=== PATIENT | male | born 1980 | race Caucasian/White ===

== ENCOUNTER → 2021-01-30 | Outpatient (CLI) | payer OTHER | LOC: RAD 10:54 | DX: M25.571 Pain in right ankle and joints of right foot (principal) | CPT/HCPCS: 73610 ==

== ENCOUNTER → 2021-03-08 | Outpatient (CLI) | payer OTHER | LOC: RAD 11:55 | DX: M25.571 Pain in right ankle and joints of right foot (principal) | CPT/HCPCS: 73590 ==

== ENCOUNTER 2021-03-13 21:03 | Emergency (ER) | payer OTHER | END 2021-03-14 04:35 | disposition left against medical advice (07) | LOC: ER1 21:03 | DX: M25.561 Pain in right knee (principal); Z88.5 Allergy status to narcotic agent | CPT/HCPCS: 99283 ==